=== PATIENT | male | born 2000 | race African-American/Black ===

== ENCOUNTER 2021-11-02 11:47 | Emergency (ER) | payer OTHER, SELFPAY ==
[2021-11-02 11:54] VITALS: BP 133/63; PULSE 76; RESP 14; TEMP 36.8; O2SAT 98; BMI 28.7
--- NOTE | 2021-11-02 11:57 | DI.RAD.S_ITS ---
PROCEDURE: XR ANKLE LT MIN 3V INDICATIONS: ankle pain after falling off jet TECHNIQUE: 3 views of the ankle were acquired. COMPARISON: None. FINDINGS: Bones: No fractures or dislocations. Ankle mortise is normally aligned. No suspicious bony lesions. Soft tissues: No tibiotalar joint effusion. Achilles tendon appears normal. IMPRESSION: No acute radiographic findings. If pain persists, followup imaging in 5-7 days is recommended to exclude occult fracture. Dictated by: Denise Karimi M.D. on 11/02/2021 at 12:58 Approved by: Denise Karimi M.D. on 11/02/2021 at 12:58
--- NOTE | 2021-11-02 13:51 | ED_ITS ---
HPI - Extremity Injury (Lower) General Chief Complaint: Extremity Injury, Lower Stated Complaint: Fell off Jet Time Seen by Provider: 11/02/21 13:42 Source: patient Mode of arrival: Ambulatory History of Present Illness HPI Narrative: Patient here from the [employer]. He was cleaning a jet. He fell off of it and landed on his left ankle. He complains of Achilles tendon pain. Is ambulatory. Previous injuries to the Achilles tendon in the past but no surgery. Denies any other injury Related Data Allergies Allergy/AdvReac Type Severity Reaction Status Date / Time No Known Drug Allergies Allergy Verified 11/02/21 11:54 Review of Systems Review of Systems Narrative: GENERAL: Denies chills, fatigue, malaise, fever, sweats. HEENT: Denies sinus pain, ear pain, sore throat RESPIRATORY: Denies dyspnea, cough CARDIOVASCULAR: Denies chest pain, palpitations GASTROINTESTINAL: Denies nausea, vomiting, abdominal pain : Denies dysuria, frequency, hematuria MUSCULOSKELETAL: Positive for muscle or bony pain SKIN: Denies rash, skin lesions NEUROLOGIC: Denies weakness, numbness ROS Unobtainable: All systems reviewed & are unremarkable except as noted in HPI and below Patient History Social History Smoking Status: Unknown if ever smoked Smoking Status: Unknown if ever smoked alcohol intake frequency: holidays/special occasions only Substance Use Type: does not use Exam Narrative Exam Narrative: GENERAL: in no distress, not toxic not dyspneic HEAD: Normocephalic. EXTREMITIES: No gross deformities. Examination left lower extremity. Nontender ankle/malleolus medial and lateral. No gross deformity. Nontender knee. Patient able to bear weight. There is tenderness to the Achilles tendon at the calcaneus. Patient able to actively flex and extend at the ankle. Erickson test intact. Light touch intact to foot and toes with strong pedal pulse. Skin intact. NEURO: AOx4. SKIN: Warm and dry PSYCH: Not anxious, is cooperative Initial Vital Signs Initial Vital Signs: Vital Signs Temperature 98.2 F 11/02/21 11:54 Pulse Rate 76 11/02/21 11:54 Respiratory Rate 14 11/02/21 11:54 Blood Pressure 133/63 11/02/21 11:54 Pulse Oximetry 98 11/02/21 11:54 Course Course Course Narrative: No new issues during course of stay Orders Ordered: ED Orders 11/02/21 11:57 XR ankle LT min 3V Stat Reevaluation(s) Reevaluation #1: Reviewed x-ray with patient. He is not surprised. Agrees with treatment plan. Time: 13:57 Vital Signs Vital signs: Vital Signs - 8 hr 11/02/21 11:54 Temperature 98.2 F Pulse Rate 76 Respiratory Rate 14 Blood Pressure 133/63 Pulse Oximetry 98 MDM - Extremity Injury (Lower) Differential Diagnosis Differential diagnosis: Likely other (Ankle sprain/strain/Achilles strain/sprain/rupture) Imaging Data Extremity x-ray #1: Radiologist's Impression: [address] [address] XRay Report Signed Patient: Yulisa Romero MR#: [id number] : 2000 Acct:[id number] Age/Sex: 20 / M Date of Service: 11/02/21 Loc: ED Accession Number: [id number] ?? Procedure: XR ankle LT min 3V Ordering Provider: Champ Gresham MD PROCEDURE:? XR ANKLE LT MIN 3V ? INDICATIONS:? ankle pain after falling off jet ? TECHNIQUE:? 3 views of the ankle were acquired.? ? COMPARISON:? None. ? FINDINGS:? ? Bones:? No fractures or dislocations.? Ankle mortise is normally aligned.? No suspicious bony lesions.? ? Soft tissues:? No tibiotalar joint effusion.? Achilles tendon appears normal.? ? ? IMPRESSION:? No acute radiographic findings. If pain persists, followup imaging in 5-7 days is recommended to exclude occult fracture. ? Dictated by: Denise Karimi M.D. on 11/02/2021 at 12:58 ? ? Approved by: Denise Karimi M.D. on 11/02/2021 at 12:58 ? [facility] Narrative Medical decision making narrative: Appropriate for discharge home. At this time clinically likely acutely strain. There is no disruption or deformity of the calf. Erickson test intact. Return precautions reviewed with patient. He agrees with treatment plan. Discharge Plan Departure Patient Disposition: Home Clinical Impression: Strain of left Achilles tendon, initial encounter Instructions: DI for Ankle Sprain Activity Restrictions/Additional Instructions: Use crutches and Juan wrap until orthopedic office appointment. No weight- bearing until then. Work note provided for no weight-bearing provided. Ibuprofen or Tylenol for pain. Return if worse if any questions or concerns Referrals: Benjamin Mathias MD [Physician] - Stand Alone Forms: Work Release Note
== END 2021-11-02 13:58 | disposition home or self-care (01) ==
PROVIDERS: Emergency Provider Emergency Medicine
DX: S86.012A Strain of left Achilles tendon, initial encounter (principal); W17.89XA Other fall from one level to another, initial encounter; Y93.89 Activity, other specified; Y92.139 Unspecified place military base as the place of occurrence of the external cause
CPT/HCPCS: 73610; 99283